=== PATIENT | female | born 1995 | race Two or more races ===

== ENCOUNTER 2017-02-04 18:12 | Emergency (ER) | payer MEDICAID, OTHER ==
[~2017-02-04] VITALS: Ht 162.6 cm; Wt 56.2 kg
[2017-02-04] MEDS ORDERED: NKM (19:12)
[2017-02-04 19:15] VITALS: BP 116/73
[2017-02-04] MEDS ORDERED: Dexamethasone 4mg/ml vial IM ONE (19:30)
[2017-02-04] MEDS ORDERED: AMOXICILLIN500 MG ORAL (19:50)
[2017-02-04 20:00] VITALS: BP 114/72
--- NOTE | 2017-02-04 23:19 | Emergency Room Report ---
History of Present Illness General Chief Complaint: Flu Like Symptoms Source: Patient Present Illness HPI The patient is a 21-year-old female presenting for sore throat, subjective fevers, and cough for the past 3 weeks. She was seen at another emergency department was not given antibiotics. Pain is described as a 9/10 dull ache and does not radiate from the back of the throat. Pain worse with coughing and swallowing. She states she feels a fullness at the back of the throat. She denies any sick contacts recent travel. She denies any other symptoms including headache, dizziness, shortness of breath, rash Allergies: Coded Allergies: No Known Allergies (Unverified , 02/04/17) Patient History Last Menstrual Period: 01/15/17 Now: No Reviewed Nursing Documentation: PMH: Agreed, PSxH: Agreed Nursing Documentation-PMH Past Medical History: No History, Except For Hx Seizures: Yes Review of Systems All Other Systems: negative except mentioned in HPI Physical Exam Vital Signs Date Time Temp Pulse Resp B/P Pulse Ox O2 Delivery O2 Flow Rate FiO2 02/04/17 19:07 98.8 108 16 116/73 98 Room Air Sp02 EP Interpretation: reviewed, normal General Appearance: no apparent distress, alert, GCS 15, non-toxic Head: normocephalic, atraumatic Eyes: bilateral eye PERRL, bilateral eye normal inspection ENT: hearing grossly normal, no angioedema, normal voice, uvula midline, tonsillar swelling, pharyngeal erythema, tonsillar exudate Neck: full range of motion, supple/symm/no masses Respiratory: chest non-tender, lungs clear, normal breath sounds, speaking full sentences Musculoskeletal: back normal, gait/station normal, normal range of motion, non- tender Neurologic: alert, oriented x3, responsive, motor strength/tone normal, sensory intact, speech normal Psychiatric: judgement/insight normal, memory normal, mood/affect normal, no suicidal/homicidal ideation Skin: normal color, no rash, warm/dry, well hydrated Lymphatic: adenopathy Medical Decision Making PA Attestation Dr. Granda is my supervising physician. Patient management was discussed with my supervising physician Diagnostic Impression: Primary Impression: Pharyngitis, acute Qualified Codes: J02.9 - Acute pharyngitis, unspecified ER Course The patient is a 21-year-old female presenting for sore throat, subjective fevers, and cough for the past 3 weeks Differential diagnosis include but not limited to pharyngitis, sinusitis, AOM, bronchitis, PNA Physical exam: Vitals within normal limits. Afebrile. No apparent distress HEENT exam: There is bilateral tonsillar edema, erythema, and exudate. Uvula midline. Moist mucous membranes. There is bilateral cervical lymphadenopathy. Lungs are clear to auscultation bilaterally Skin is warm and dry. No rash The patient is given Decadron due to enlarged tonsils The patient will be discharged home with a prescription for amoxicillin and is given ER precautions. Patient will followup with primary care Last Vital Signs Date Time Temp Pulse Resp B/P Pulse Ox O2 Delivery O2 Flow Rate FiO2 02/04/17 19:15 108 16 Room Air 02/04/17 19:15 98.8 116/73 98 Status: improved Disposition: HOME, SELF-CARE Condition: Improved Scripts Amoxicillin* (AMOXIL*) 500 Mg Capsule 500 MG ORAL Q12HR, #20 CAP Prov: LYNSEY TIAN 02/04/17 Referrals: [facility],REFERRING (PCP) Patient Instructions: Pharyngitis Additional Instructions: I discussed my findings with the patient. All questions and concerns have been answered. Treatment and medication compliance have been addressed. I advised the patient that they need to follow up with PMD in 3-5 days. Return to ED if pain remains or worsens, cough worsens or remains, you notice blood in your sputum, you notice wheezing, you experience a fever, or if needed for any reason. Patient verbalized understanding of discharge instructions. LYNSEY TIAN February 04, 2017 23:19
== END 2017-02-04 20:00 | disposition home or self-care (01) ==
LOC: EMR 19:40
DX: J02.9 Acute pharyngitis, unspecified (principal); R05 Cough
CPT/HCPCS: 99283